=== PATIENT | female | born 1945 | race Caucasian/White ===

== ENCOUNTER → 2016-12-12 | Outpatient (CLI) | payer MEDICARE, BC ==
[~2016-12-12] MED LIST: B-121000 MCG PO; BLACK COHOSH40 MG PO; EFFEXOR XR75 MG PO; GLUCOPHAGE 500500 MG PO; IBUPROFEN800 MG PO; LEVAQUIN750 MG PO; LIPITOR TAB 1010 MG PO; LOPRESSOR 50 MG50 MG PO; MAG-OX 400 TAB400 MG PO; OMEPRAZOLE20 M1 PO; VITAMIN D 11000 UNIT PO
== END ==
LOC: US 11-30 11:30
DX: R22.1 Localized swelling, mass and lump, neck (principal); R13.10 Dysphagia, unspecified
CPT/HCPCS: 76536

== ENCOUNTER → 2020-09-07 | Outpatient (CLI) | payer MEDICARE, BC | LOC: RAD 14:48 | DX: M06.09 Rheumatoid arthritis without rheumatoid factor, multiple sites (principal) | CPT/HCPCS: 73130 ==

== ENCOUNTER → 2021-02-02 | Outpatient (CLI) | payer MEDICARE, BC | LOC: CT 12:42 | DX: R51.9 Headache, unspecified (principal) | CPT/HCPCS: 70450 ==

== ENCOUNTER → 2022-04-05 | Outpatient (CLI) | payer OTHER | LOC: EXRD 14:06 | DX: R22.1 Localized swelling, mass and lump, neck (principal) | CPT/HCPCS: 76536 ==